=== PATIENT | male | born 1935 | race Caucasian/White ===

== ENCOUNTER 2018-11-30 08:56 | Emergency (ER) | payer OTHER, MEDICAID ==
[~2018-11-30] VITALS: Ht 165.1 cm; Wt 61.2 kg
[2018-11-30 08:59] VITALS: BP 101/63
--- NOTE | 2018-11-30 09:04 | NUR ---
0849-- PT MANSOOR BLS TO ER BED 9
--- NOTE | 2018-11-30 09:08 | NUR ---
PT BIBA S/P MECHANICAL FALL TODAY. PER REPORT PT IS NON-AMBULATORY, ATTEMPTED TO GET UP UNASSISTED AND HE FELL. SMALL LACERATION NOTED TO UPPER LT SIDE OF NOSE. MEDICAL HX OF DEMENTIA, ALZHEIMER AND HTN. PT IS ALERT AND ORIENTED TO PERSON. 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 BILATERAL FOOT PUSH EQUAL. PUPILS EQUAL AND REACTIVE TO LIGHT BILATERALLY. PLACED IN GOWN; CONNECTED TO MONITOR, VSS. DR CHOW EVALUATING PT AT BEDSIDE UPON ARRIVAL TO ED.
--- NOTE | 2018-11-30 09:23 | NUR ---
PT TAKEN TO CT
--- NOTE | 2018-11-30 09:35 | NUR ---
PT RETURNED FROM CT
--- NOTE | 2018-11-30 10:51 | NUR ---
Samina fischer in [facility] - 11/30/18 at 1052 by SALOMÓN SPOKE WITH BOBO LOYD
--- NOTE | 2018-11-30 10:52 | NUR ---
SPOKE WITH BOBO FROM [facility] IN [place]; INFORMED THAT PT WILL BE ARRIVING TO THEIR FACILITY WITH SON VIA PRIVATE CAR. REPORT GIVEN, OPPORTUNITY TO ASK QUESTIONS PROVIDED. ALL CONCERNS ANSWERED. WAITING FOR TRANSPORTATION AT THIS TIME. VSS. PT IS IN STABLE CONDITINON.
--- NOTE | 2018-11-30 11:18 | NUR ---
son at bedside.
[2018-11-30 11:28] VITALS: BP 138/71
--- NOTE | 2018-11-30 11:28 | NUR ---
Patient discharged with v/s stable. Written and verbal after care instructions given and explained. son verbalized understanding. Wheel Chair Assisted to car. All questions addressed prior to discharge. Advised to follow up with PMD.
== END 2018-11-30 11:28 | disposition home or self-care (01) ==
LOC: MED 08:56
DX: S01.21XA Laceration without foreign body of nose, initial encounter (principal); F03.90 Unspecified dementia, unspecified severity, without behavioral disturbance, psychotic disturbance, mood disturbance, and anxiety; Z88.8 Allergy status to other drugs, medicaments and biological substances; W19.XXXA Unspecified fall, initial encounter; Y93.89 Activity, other specified; Y92.89 Other specified places as the place of occurrence of the external cause; Y99.8 Other external cause status
CPT/HCPCS: 70450; 72125; 99284

== ENCOUNTER 2018-12-15 15:55 | Emergency (ER) | payer OTHER, MEDICAID ==
[~2018-12-15] VITALS: Ht 170.2 cm; Wt 72.6 kg
[2018-12-15 15:55] VITALS: BP 134/68
--- NOTE | 2018-12-15 15:57 | NUR ---
PT BIBA BLS TO ER BED 8
--- NOTE | 2018-12-15 16:12 | NUR ---
MANSOOR FROM [facility]. PER EMS, PT HAD WITNESSED MECHANICAL FALL AND WAS CAUGHT BY STAFF. PER EMS, PT DIDN'T HIT HEAD, NO LOC. PT ALSO C/O OF RASH AND ITCHINESS FOR 2 DAYS. DENIES N/V/D; SKIN IS PINK/WARM/DRY, BUT ERYTHEMEOUS RASH ON BODY NOTICED; AAOX2 WITH EVEN AND STEADY GAIT; LUNGS CLEAR BL; HR EVEN AND REGULAR; PT DENIES ANY FEVER, CP, SOB, OR COUGH AT THIS TIME; PATIENT STATES PAIN OF 0/10 AT THIS TIME; VSS; PATIENT POSITIONED FOR COMFORT; HOB ELEVATED; BEDRAILS UP X2; BED DOWN. ER MD MADE AWARE OF PT STATUS.
--- NOTE | 2018-12-15 16:47 | NUR ---
PT TAKEN TO RAD VIA [facility]
[2018-12-15] MEDS ORDERED: DONE10TA37 PO (16:52)
[2018-12-15] MEDS ORDERED: FEXO180T82 PO (16:52)
[2018-12-15] MEDS ORDERED: ASPI-1718 PO (16:52)
[2018-12-15] MEDS ORDERED: BENA10TA81 PO (16:52)
[2018-12-15] MEDS ORDERED: MEMA10TA PO (16:52)
[2018-12-15] MEDS ORDERED: KEN.1C TP (16:52)
[2018-12-15] MEDS ORDERED: TRAZ-343 PO (16:52)
[2018-12-15] MEDS ORDERED: QUET25TA PO (16:52)
[2018-12-15] MEDS ORDERED: FLO110 IH (16:52)
[2018-12-15] MEDS ORDERED: FEXO-11 PO (16:54)
[2018-12-15] MEDS ORDERED: FLONAS NS (16:58)
--- NOTE | 2018-12-15 17:06 | NUR ---
PT RETURNED FROM RAD VIA BED
--- NOTE | 2018-12-15 17:18 | NUR ---
URINE SAMPLE OBTAINED VIA STRAIGHT CATH USING STERILE TECHNIQUE. PT TOLERATED WELL.
--- NOTE | 2018-12-15 17:18 | NUR ---
Samina fischer in ED - 12/15/18 at 1721 by TEJ URINE SAMPLE OBTAINED VIA STRAIGHT CATH USING STERILE TECHNIQUE. PT TOLERATED WELL.
[2018-12-15 17:43] LABS: BASOPHILS % (AUTO) 0.5 % (0.0-2.0); EOSINOPHILS # (AUTO) 0.9 K/uL (0-0.4); EOSINOPHILS % (AUTO) 14.3 % (0.0-4.0); HEMATOCRIT 40.8 % (36-52); HEMOGLOBIN 13.3 g/dL (12.0-18.0); LYMPHOCYTES # (AUTO) 0.9 K/uL (2.0-11.5); LYMPHOCYTES % (AUTO) 14.5 % (20.5-51.1); MEAN CORPUSCULAR HEMOGLOBIN 30 pg (27-31); MEAN CORPUSCULAR HGB CONC 33 g/dL (33-37); MEAN CORPUSCULAR VOLUME 91.8 fL (80-94); MONOCYTES # (AUTO) 0.4 K/uL (0.8-1.0); MONOCYTES % (AUTO) 6.7 % (1.7-9.3); PLATELET COUNT (AUTO) 241 K/uL (140-450); RED BLOOD CELL COUNT(AUTO) 4.44 MIL/uL (4.20-6.10); RED CELL DISTRIBUTION WIDTH 14.8 % (11.6-13.7); WHITE BLOOD COUNT (AUTO) 6.3 K/uL (4.8-10.8)
[2018-12-15 17:53] LABS: ANION GAP 11.1 (8-16); CARBON DIOXIDE 29.8 mmol/L (21-32); CHLORIDE 105 mmol/L (98-107); GLUCOSE 101 mg/dL (74-106); POTASSIUM 3.9 mmol/L (3.5-5.1); SODIUM SERUM 142 mmol/L (136-145); UREA NITROGEN, BLOOD 20 mg/dL (7-18)
[2018-12-15 17:59] LABS: ALBUMIN 3.3 g/dL (3.4-5.0); ASPARTATE AMINOTRANSFERASE 25 U/L (15-37); TOTAL BILIRUBIN 0.5 mg/dL (0.0-1.0)
--- NOTE | 2018-12-15 18:15 | NUR ---
Samina fischer in EDM - 12/15/18 at 1943 by [facility] VERBAL ORDER RECEIVED FROM DR. MANNING. BENADRYL 25MG PO GIVEN TO PT.
--- NOTE | 2018-12-15 18:15 | NUR ---
VERBAL ORDER RECEIVED FROM DR. MANNING. BENADRYL 25MG PO GIVEN TO PT.
[2018-12-15 19:08] LABS: APPEARANCE,URINE CLEAR (CLEAR); BILIRUBIN,URINE NEGATIVE (NEGATIVE); BLOOD, URINE NEGATIVE (NEGATIVE); COLOR,URINE YELLOW (YELLOW); LEUKOCYTE ESTERASE ,URINE NEGATIVE (NEGATIVE); NITRITE, URINE NEGATIVE (NEGATIVE); PH,URINE 6.5 (5.0-9.0); UGLUCOSE NEGATIVE (NEGATIVE)
--- NOTE | 2018-12-15 19:15 | NUR ---
PT IS RESTING IN BED WITH EYES OPENED.
--- NOTE | 2018-12-15 20:10 | NUR ---
AWAITING NON EMERGENCY TRANSPORT BACK TO HOME FACILITY: [facility] [facility]. ETA: 2130.
--- NOTE | 2018-12-15 21:35 | NUR ---
REPORT GIVEN TO KRIS DOZIER. [facility] AT THIS [facility].
--- NOTE | 2018-12-15 21:44 | NUR ---
CALLED [facility] FOR UPDATED ETA: 2200.
[2018-12-15 23:35] VITALS: BP 128/81
--- NOTE | 2018-12-15 23:35 | NUR ---
Patient discharged with v/s stable. Written and verbal after care instructions given and explained. Patient alert, oriented and verbalized understanding of instructions. Ambulance Transport with [facility]. All questions addressed prior to discharge. ID band removed. Patient advised to follow up with PMD. Rx of PERMETHRIN given. Patient educated on indication of medication including possible reaction and side effects. Opportunity to ask questions provided and answered.
== END 2018-12-15 23:35 | disposition home or self-care (01) ==
LOC: MED 15:55
DX: M25.512 Pain in left shoulder (principal); R51 Headache; R21 Rash and other nonspecific skin eruption; F03.90 Unspecified dementia, unspecified severity, without behavioral disturbance, psychotic disturbance, mood disturbance, and anxiety; I10 Essential (primary) hypertension; Z79.82 Long term (current) use of aspirin; Z79.899 Other long term (current) drug therapy; Z88.8 Allergy status to other drugs, medicaments and biological substances; W19.XXXA Unspecified fall, initial encounter; Y93.89 Activity, other specified; Y92.89 Other specified places as the place of occurrence of the external cause; Y99.8 Other external cause status
CPT/HCPCS: 36415; 70450; 71045; 72125; 73030; 80053; 81003; 85025; 99284; C1758; Q0092; Q0163

== ENCOUNTER 2019-05-22 09:49 | Emergency (ER) | payer OTHER, MEDICAID ==
[~2019-05-22] VITALS: Ht 157.5 cm; Wt 60.6 kg
[~2019-05-22 09:49] MED LIST: ASPI-1718 PO; BENA10TA81 PO; DONE10TA37 PO; FEXO-11 PO; FLONAS NS; KEN.1C TP; MEMA10TA PO; QUET25TA PO; TRAZ-343 PO
--- NOTE | 2019-05-22 09:49 | NUR ---
PATIENT TO BED 2 BY EMS AT THIS TIME.
[2019-05-22 09:59] VITALS: BP 130/74
--- NOTE | 2019-05-22 10:03 | NUR ---
84/M TO ED VIA EMS FROM [facility] FOR A MECHANICAL SLIP AND FALL. EMS REPORTS NO LOC. PT IS ALERT TO NAME AND BIRTHDAY AND IS AT BASELINE DUE TO DX OF DEMENTIA. SKIN TEAR NOTED TO RT ELBOW, BLEEDING CONTROLLED. NO HEMATOMA, NO OBVIOUS DEFORMITY NOTED. IN BED FOR MSE.
[2019-05-22] MEDS ORDERED: BACITRACIN OINT 500 UNITS/GM PKT TP ONE (10:15)
--- NOTE | 2019-05-22 10:15 | NUR ---
SPOKE WITH TERESO FROM [facility], [facility] PT IS ALERT TO NAME AND BIRTHDAY AND REPORTS PT HAS BEEN ACTING APPROPRIATE PRIOR TO FALL.
--- NOTE | 2019-05-22 10:25 | NUR ---
SKIN TEAR TO L ELBOW CLEANED BY JUANJO NOVOA. APPLIED BACITRACIN OINTMENT TO SITE. APPLIED NON-ADHERENT DRESSING AND WRAPPED WITH COBAN.
--- NOTE | 2019-05-22 10:30 | NUR ---
TO CT VIA [facility]
--- NOTE | 2019-05-22 10:42 | NUR ---
RETURN FROM CT
--- NOTE | 2019-05-22 12:38 | NUR ---
PT ATTEMPTING TO GET OUT OF BED AND REMOVED DRESSING TO ELBOW. PT REORIENTED AND PLACED INTO BED. DRESSING REAPPLIED.
--- NOTE | 2019-05-22 13:37 | NUR ---
PT ATTEMPTING TO GET OUT OF BED AGAIN. REDIRECTED PT, POSISTIONED IN BED FOR COMFORT. WILL CONTINUE TO MONITOR CLOSELY; PENDING TRANSPORT BACK TO [facility].
[2019-05-22] MEDS ORDERED: LORazepam 1 MG TAB PO ONE (13:50)
--- NOTE | 2019-05-22 13:50 | NUR ---
ORDER FOR ATIVAN PO RECIEVED. WILL MEDICATE ORDERED.
--- NOTE | 2019-05-22 14:00 | NUR ---
PT REMAINS AGITATED AND ATTEMPTING TO LEAVE BED; OFFERED URINAL AND FOOD. PT DECLINED.
--- NOTE | 2019-05-22 14:30 | NUR ---
URINAL AND FOOD OFFERED AGAIN; PT ACCEPTED SANDWICH AND DECLINED URINAL. STILL ATTEMPTING TO LEAVE BED.
[2019-05-22 14:47] VITALS: BP 131/68
--- NOTE | 2019-05-22 14:48 | NUR ---
[facility] AT BEDSIDE FOR TRANSPORT BACK TO FACILITY.
--- NOTE | 2019-05-22 14:49 | NUR ---
Patient discharged with v/s stable. Written and verbal after care instructions given and explained. Patient verbalized understanding. Wheel Chair Assisted with to half-way. All questions addressed prior to discharge. Advised to follow up with PMD.
== END 2019-05-22 14:49 ==
LOC: MED 09:49
DX: S51.011A Laceration without foreign body of right elbow, initial encounter (principal); F03.90 Unspecified dementia, unspecified severity, without behavioral disturbance, psychotic disturbance, mood disturbance, and anxiety; I10 Essential (primary) hypertension; Z79.82 Long term (current) use of aspirin; Z79.899 Other long term (current) drug therapy; W19.XXXA Unspecified fall, initial encounter; Y93.89 Activity, other specified; Y92.89 Other specified places as the place of occurrence of the external cause; Y99.8 Other external cause status
CPT/HCPCS: 70450; 73080; 82948; 90471; 90715; 99284; Q0092